=== PATIENT | female | born 1985 | race Caucasian/White ===

== ENCOUNTER 2017-10-07 11:55 | Emergency (ER) | payer OTHER ==
[2017-10-07 12:10] VITALS: BP 150/100
--- NOTE | 2017-10-07 12:29 | UC ---
Eye Complaint HPI - HPI Summary HPI Summary: 32 y/o female presents to the urgent care c/o RT eye redness w/ swelling around eye since last night around 0200AM. Pt was outside last night and then she went to sleep. She felt discomfort in her RT eye and when she look in the mirror her Rt was swollen. She thinks maybe she had an insect bite. This morning she woke up w/ mild yellowish crusting drainage. Pt denies eye pain, photophobia, GARCÍA, dizziness, SOB, throat tightening, rash, abdominal pain, N/V/ D. Pt states every time she goes to the doctor her BP is high. - History of Current Complaint Chief Complaint: UCEye Stated Complaint: RIGHT EYE COMPLAINT Time Seen by Provider: 10/07/17 12:10 Hx Obtained From: Patient Hx Last Menstrual Period: present Onset/Duration: Gradual Onset, Lasting Days - 1 day, Still Present, Worse Since - this morning Timing: Constant Severity Initially: Mild Severity Currently: Moderate Pain Intensity: 0 Pain Scale Used: 0-10 Numeric Location of Injury: Conjunctiva - RT conjunctiva redness, Periorbital - RT eye swelling Character: Dull Aggravating Factor(s): Blinking Alleviating Factor(s): Nothing Associated Signs And Symptoms: Positive: Drainage (Purulent) - mild this morning when she woke up, Swelling - RT eye. Negative: Photophobia, Vision Impairment Bilateral - Risk Factors Penetrating Injury Risk Factor: Negative Globe Rupture Risk Factors: Negative Acute Glaucoma Risk Factors: Negative - Allergies/Home Medications Allergies/Adverse Reactions: Allergies Allergy/AdvReac Type Severity Reaction Status Date / Time Penicillins Allergy Intermediate Rash Verified 10/07/17 12:10 PMH/Surg Hx/FS Hx/Imm Hx Previously Healthy: Yes - Pt denies PMHX - Surgical History Surgical History: None - Family History Known Family History: Positive: None - PT denies FMHX - Social History Occupation: Employed Full-time Lives: With Family Alcohol Use: Occasionally Substance Use Type: None Smoking Status (MU): Former Smoker Review of Systems Constitutional: Negative Skin: Negative Eyes: Drainage - mild rustingthis morning, Eye Redness - RT eye, Other - RT eye swelling ENT: Negative Respiratory: Negative Cardiovascular: Negative Gastrointestinal: Negative Genitourinary: Negative Motor: Negative Neurovascular: Negative Musculoskeletal: Negative Neurological: Negative Psychological: Negative Is Patient Immunocompromised?: No All Other Systems Reviewed And Are Negative: Yes Physical Exam - Summary Physical Exam Summary: Vital Signs Reviewed: Yes General: Well appearing, well nourished obese female in no apparent pain distress Eyes: Positive: RT Conjunctiva Inflamed - Visual acuity: WNL,Visual clemens: full to confrontation.mild periorbital soft tissue swelling at the RT upper eyelid with erythema,, tender to palpation. PERRLA, EOMI intact w/out limitation or complaint of pain. eyelashes clear. mild tearing and yellowish drainage observed. No ciliary flush. No chemosis, No photophobia. Normal fundoscopic exam; no proptosis, exophthalmos, nystagmus. ENT: Positive: Normal ENT inspection, Hearing grossly normal, Pharynx normal, Nasal congestion, Nasal drainage - clear, TMs normal - B/L external ear canal clear , TM's WNL. Negative: Tonsillar swelling, Tonsillar exudate Neck: Positive: Supple, Nontender, No Lymphadenopathy Respiratory: Positive: Chest nontender, Lungs clear, Normal breath sounds, No respiratory distress Cardiovascular: Positive: RRR, No Murmur, Pulses Normal, Brisk Capillary Refill Abdomen Description: Positive: Nontender, No Organomegaly, Soft. Negative: CVA Tenderness (R), CVA Tenderness (L) Bowel Sounds: Positive: Present Musculoskeletal: Positive: Strength Intact, ROM Intact, No Edema Neurological Exam: Normal Psychological Exam: Normal Skin Exam: Normal Triage Information Reviewed: Yes Vital Signs: Initial Vital Signs Temp 99.1 F 10/07/17 12:03 Pulse 100 10/07/17 12:03 Resp 18 10/07/17 12:03 BP 150/100 10/07/17 12:03 Pulse Ox 98 10/07/17 12:03 Eye Complaint Course/Dx - Course Course Of Treatment: 32 y/o female presents to the urgent care c/o RT eye redness w/ swelling around eye since last night around 0200AM. Pt was outside last night and then she went to sleep. She felt discomfort in her RT eye and when she look in the mirror her Rt was swollen. She thinks maybe she had an insect bite. This morning she woke up w/ mild yellowish crusting drainage. Pt denies eye pain, photophobia, GARCÍA, dizziness, SOB, throat tightening, rash, abdominal pain, N/V/D. Pt states every time she goes to the doctor her BP is high.Hx obtained. Pt probably w/ periorbital cellulitis s/p insect bite and B/ L cerumen impaction. Pt declined ear irrigation. Pt PCN allergic. Pt Rx Clindamycin PO and erythromycin ophthalmic oint to alleviate symptoms. Advised to apply cold compresses for swelling. Also Rx Debrox otic drops to alleviate cerumen impaction. Pt advised to f/u w; [facility] DR Yang if not improvement of symptoms in 2 days for further management. Pt's BP is elevated today advised to decrease salt in diet, monitor BP and f/u with PCP for further management. Pt understood and agreed w/ plan of care. - Differential Dx/Diagnosis Provider Diagnoses: 1- Rt eye periorbital cellulitis. 2-B/L cerumen impaction. 3-Elevated BP w/o Hx of HTN Discharge - Sign-Out/Discharge Documenting (check all that apply): Patient Departure - D/C home - Discharge Plan Condition: Stable Disposition: HOME Prescriptions: Carbamide Peroxide 6.5% OTIC* [DEBROX 6.5% Otic*] 5 drop BOTH EARS BID #1 bottle Clindamycin Cap(NF) [Clindamycin Cap 300 mg Cap(NF)] 300 mg PO TID #21 cap Erythromycin TOPICAL GEL* [Erythromycin OPTH OINT*] 1 applic TOPICAL TID #1 oint Patient Education Materials: Cerumen Impaction (ED), Low-Sodium Diet (ED), Periorbital Cellulitis in Adults (ED) Referrals: [facility] [place] [facility] [Outside] - 3 Days Renetta Yang MD [Medical Doctor] - 2 Days Additional Instructions: 1-Please apply ophthalmic oint as instructed and finish the full course of Clyndamycin PO to avoid recurrent infection. Encourage hand washing. apply cold compresses to decrease swelling. Antibiotics can upset your Digestive system please take probiotics or culturelle to protect your GI system. 2-If you do not improve or if symptoms worsen please f/u with jewel s[facility] DR Yang in 2-3 days for further evaluation and treatment 3-Your BP is elevated today. please decrease salt in your diet, monitor BP and if it continues to be elevated please f/u with your PCP for further management - Billing Disposition and Condition Condition: STABLE Disposition: Home
== END 2017-10-07 12:45 | disposition home or self-care (01) ==
LOC: UCCORT 11:55
DX: H05.011 Cellulitis of right orbit (principal); H61.23 Impacted cerumen, bilateral; R03.0 Elevated blood-pressure reading, without diagnosis of hypertension; Z88.0 Allergy status to penicillin; Z87.891 Personal history of nicotine dependence
CPT/HCPCS: 99202; G0463

== ENCOUNTER 2018-09-17 19:59 | Emergency (ER) | payer BC, OTHER ==
[2018-09-17 20:07] VITALS: BP 119/73
[2018-09-17] MEDS ORDERED: Lidocaine 1%** 5 ML VIAL INJ ONE (20:09)
[2018-09-17] MEDS ORDERED: Tetan/Diph/Pertus SYR(Tdap)* 0.5 ML SYR(BOOSTRIX) use SYR IM ONE (20:11)
--- NOTE | 2018-09-17 20:27 | UC ---
Laceration HPI - HPI Summary HPI Summary: Pt presents with c/o laceration to right hand while washing dishes at home. laceration at base of right thumb. - History Of Current Complaint Chief Complaint: UCLaceration Stated Complaint: RIGHT HAND LAC Time Seen by Provider: 09/17/18 20:05 Hx Obtained From: Patient Hx Last Menstrual Period: now Laceration Location: Hand Mechanism Of Injury: Sharp Trauma Onset/Duration: Sudden Onset Severity: Moderate Pain Intensity: 6 Aggravating Factors: Position, Movement Related History: Dominant Hand Right - Allergies/Home Medications Allergies/Adverse Reactions: Allergies Allergy/AdvReac Type Severity Reaction Status Date / Time Penicillins Allergy Intermediate Rash Verified 09/17/18 20:02 Home Medications: Home Medications NK [No Home Medications Reported] 09/17/18 [History Confirmed 09/17/18] PMH/Surg Hx/FS Hx/Imm Hx Previously Healthy: Yes - Surgical History Surgical History: Yes Surgery Procedure, Year, and Place: wisdom teeth - Family History Known Family History: Positive: Cardiac Disease - Social History Occupation: Employed Full-time Lives: With Family Alcohol Use: Occasionally Substance Use Type: None Smoking Status (MU): Former Smoker Have You Smoked in the Last Year: No - Immunization History Most Recent Tetanus Shot: Unknown Review of Systems All Other Systems Reviewed And Are Negative: Yes Constitutional: Positive: Negative Skin: Positive: Other - laceration right hand Eyes: Positive: Negative ENT: Positive: Negative Respiratory: Positive: Negative Cardiovascular: Positive: Negative Gastrointestinal: Positive: Negative Motor: Positive: Negative Neurovascular: Positive: Negative Musculoskeletal: Positive: Myalgia - at laceration site Neurological: Positive: Negative Psychological: Positive: Negative Is Patient Immunocompromised?: No Physical Exam Triage Information Reviewed: Yes Appearance: Pain Distress, Other: - pale, Vital Signs: Initial Vital Signs Temp 96.7 F 09/17/18 20:03 Pulse 63 09/17/18 20:03 Resp 16 09/17/18 20:03 BP 119/73 09/17/18 20:03 Pulse Ox 98 09/17/18 20:03 Vital Signs Reviewed: Yes Eye Exam: Normal ENT: Positive: Hearing grossly normal Respiratory: Positive: No respiratory distress Musculoskeletal: Positive: Strength Intact, ROM Intact Neurological Exam: Normal Psychological Exam: Normal Skin Exam: Other - laceration right hand base of right thumb Laceration Repair - Laceration Repair 1 Description: Irregular Laceration Size After Repair: Length (cm) - 5, Width (mm) - 5, Depth (mm) - 4 Modified For Repair: No Type Injection: Local Anesthesia Used: 1.0% Lido Cleansing Completed Via Routine Prep: Yes Irrigation With Pressure Irrigation Device: Yes Closure Material: Sutures - 14 sutures of 4-0 prolene placed Closure Method: Single Layer Suture Of: Skin Suture Type: Prolene Diagnostics - Radiology No standard instances Radiology Interpretation Completed By: ED Physician - negative for foreign body Laceration Course/Dx - Course/Dx Course Of Treatment: Pt needed tetanus booster. - Differential Dx - Laceration/Wound Differental Diagnoses: Foreign Body, Laceration - Diagnosis Provider Diagnosis: Laceration of right hand Discharge - Sign-Out/Discharge Documenting (check all that apply): Patient Departure All imaging exams completed and their final reports reviewed: No - Discharge Plan Condition: Stable Disposition: HOME Patient Education Materials: Laceration (ED), Finger Laceration (ED) Forms: *Work Release Referrals: No Primary Care Phys,NOPCP [Primary Care Provider] - [facility] [place] [facility] [Outside] Additional Instructions: Please change dressing daily or more frequently if bandage gets soiled or wet. Please do not get wound wet or soiled for 24-48 hours. Please use splint for 5- 6 days. Please return to clinic for suture removal in 8-10 days. Please monitor for any signs or symptoms of infection that include but are not limited to increased redness, purulent drainage, tenderness, swelling fever and/or chills. - Billing Disposition and Condition Condition: STABLE Disposition: Home
[2018-09-17] MEDS ORDERED: Lidocaine 1% MPF* 2 ML VIAL INJ ONE (21:08)
--- NOTE | 2018-09-18 13:41 | UC ---
- Progress Note Progress Note: Radiologist reading of right hand x-ray from September 17, 2018 is no foreign body. Provider interpretation of the same date also states no foreign body therefore there is no discrepancy. Course/Dx - Diagnoses Provider Diagnoses: Laceration of right hand Discharge - Sign-Out/Discharge Documenting (check all that apply): Patient Departure All imaging exams completed and their final reports reviewed: Yes - Discharge Plan Condition: Stable Disposition: HOME Patient Education Materials: Laceration (ED), Finger Laceration (ED) Forms: *Work Release Referrals: [facility] [place] [facility] [Outside] No Primary Care Phys,NOPCP [Primary Care Provider] - Additional Instructions: Please change dressing daily or more frequently if bandage gets soiled or wet. Please do not get wound wet or soiled for 24-48 hours. Please use splint for 5- 6 days. Please return to clinic for suture removal in 8-10 days. Please monitor for any signs or symptoms of infection that include but are not limited to increased redness, purulent drainage, tenderness, swelling fever and/or chills. - Billing Disposition and Condition Condition: STABLE Disposition: Home
== END 2018-09-17 21:49 | disposition home or self-care (01) ==
LOC: UCCORT 19:59
DX: W26.8XXA Contact with other sharp object(s), not elsewhere classified, initial encounter (principal); Y93.G1 Activity, food preparation and clean up; Y92.000 Kitchen of unspecified non-institutional (private) residence as the place of occurrence of the external cause; Z88.0 Allergy status to penicillin; Z87.891 Personal history of nicotine dependence
CPT/HCPCS: 12002; 90471; 90715; 99211; G0463

== ENCOUNTER 2018-09-25 17:48 | Emergency (ER) | payer BC ==
--- NOTE | 2018-09-25 18:20 | UC ---
General HPI - HPI Summary HPI Summary: R hand sutured on 09/17/18. Pt here for suture removal. she notes mild swelling and stiffness but no erythema, drainage or limited ROM. - History of Current Complaint Stated Complaint: SUTURE REMOVAL Time Seen by Provider: 09/25/18 18:14 Hx Obtained From: Patient Hx Last Menstrual Period: now Associated Signs & Symptoms: Negative: Fever - Allergy/Home Medications Allergies/Adverse Reactions: Allergies Allergy/AdvReac Type Severity Reaction Status Date / Time Penicillins Allergy Intermediate Rash Verified 09/25/18 18:14 PMH/Surg Hx/FS Hx/Imm Hx Previously Healthy: Yes - Surgical History Surgical History: Yes Surgery Procedure, Year, and Place: wisdom teeth - Family History Known Family History: Positive: Cardiac Disease - Social History Alcohol Use: Occasionally Substance Use Type: None Smoking Status (MU): Former Smoker Have You Smoked in the Last Year: No - Immunization History Most Recent Tetanus Shot: Unknown Review of Systems All Other Systems Reviewed And Are Negative: No Constitutional: Negative: Fever Skin: Negative: Rash Musculoskeletal: Negative: Decreased ROM Physical Exam Triage Information Reviewed: Yes Appearance: Well-Appearing Vital Signs Reviewed: Yes Skin Exam: Normal, Other - R dorsal hand with stitches at base of index finger. slight swelling but no erythema, warmth or drainage. hand has full s/v/m function. Course/Dx - Course Course Of Treatment: Procedure: part of the sutures were removed; however, 5 were left because a few areas of the wound edge started to separate. the wound was cleansed with warm water and dilute peroxide to remove some old dry blood. hand was then dried. Mastisol was placed where wound edge separation occurred and 3 steri strips were applied. volar finger splint applied to index finger and held with this strips of coban. wound was left visible. pt will wear the splint as needed for comfort of wound. Repeat BP prior to discharge was much improved. - Diagnoses Provider Diagnosis: Visit for suture removal, Skin wound closed with sterile strip Discharge - Sign-Out/Discharge Documenting (check all that apply): Patient Departure All imaging exams completed and their final reports reviewed: No Studies - Discharge Plan Condition: Stable Disposition: HOME Patient Education Materials: Steristrips (ED), Stitches Removal (ED) Referrals: KIMBERLY Whitlock [Medical Doctor] - If Needed Additional Instructions: RETURN IN 5 DAYS FOR WOUND CHECK/SUTURE REMOVAL. RETURN SOONER FOR ANY CONCERNS. - Billing Disposition and Condition Condition: STABLE Disposition: Home
[2018-09-25 18:54] VITALS: BP 126/83
== END 2018-09-25 18:53 | disposition home or self-care (01) ==
LOC: UCCORT 17:48
DX: S61.411D Laceration without foreign body of right hand, subsequent encounter (principal); X58.XXXD Exposure to other specified factors, subsequent encounter; Y92.9 Unspecified place or not applicable; Z87.891 Personal history of nicotine dependence
CPT/HCPCS: 99211; G0463

== ENCOUNTER 2019-04-07 10:14 | Emergency (ER) | payer SELFPAY ==
--- NOTE | 2019-04-07 12:09 | UC ---
Ear Complaint HPI - HPI Summary HPI Summary: 34 y/o female presents to the urgent care c/o cold symptoms w/ nasal congestion, moderate PND and sinus pressure and pain for the past week. symptoms were improving w/ Sudafed PO, but on Sunday Pt experienced left ear pain. This morning pain is worse 6/10 associated w/ ear pressure and pain. She has not taken anything for pain. Mild sore throat, GARCÍA and moderate PND. Pt states she usually gets very anxious when she comes to the Dr and her BP if elevated at first. Pt denies fever, dizziness, SOB, chest pain, visual changes , abdominal pain, N/V/d. - History of Current Complaint Stated Complaint: LEFT EAR COMPLAINT Time Seen by Provider: 04/07/19 12:08 Hx Obtained From: Patient Hx Last Menstrual Period: now ?: No Onset/Duration: Gradual Onset Severity Initially: Mild Severity Currently: Moderate Pain Intensity: 6 - left ear Pain Scale Used: 0-10 Numeric Aggravating Factors: Other - URI symptoms Alleviating Factors: OTC Meds - Sudafed PO Associated Signs/Symptoms: Positive: Hearing Loss, URI Symptoms - Allergies/Home Medications Allergies/Adverse Reactions: Allergies Allergy/AdvReac Type Severity Reaction Status Date / Time Penicillins Allergy Intermediate Rash Verified 04/07/19 12:21 PMH/Surg Hx/FS Hx/Imm Hx Previously Healthy: Yes - Pt denies PMHX - Surgical History Surgical History: Yes Surgery Procedure, Year, and Place: wisdom teeth - Family History Known Family History: Positive: Cardiac Disease - Social History Occupation: Employed Full-time Lives: With Family Alcohol Use: Occasionally Substance Use Type: None Smoking Status (MU): Former Smoker Have You Smoked in the Last Year: No - Immunization History Most Recent Tetanus Shot: Unknown Review of Systems All Other Systems Reviewed And Are Negative: Yes Constitutional: Positive: Negative Skin: Positive: Negative Eyes: Positive: Negative ENT: Positive: Sore Throat - mild, Ear Ache - left ear pain w/ decrease hearing and pressure, Nasal Discharge - yellowish, Sinus Congestion, Sinus Pain/ Tenderness, Other - moderate yellowish PND Respiratory: Positive: Negative Cardiovascular: Positive: Negative Gastrointestinal: Positive: Negative Genitourinary: Positive: Negative Motor: Positive: Negative Neurovascular: Positive: Negative Musculoskeletal: Positive: Negative Neurological: Positive: Headache Psychological: Positive: Negative Is Patient Immunocompromised?: No Physical Exam - Summary Physical Exam Summary: Vital signs: reviewed General: well developed, well nourished obese female sitting in the examining table w/o any apparent distress Skin: [place], warm and dry, no evidence of atopic dermatitis, psoriasis, seborrhea. HEENT: -Head: atraumatic, non tender; no scalp dermatitis. -Eyes: sclera and conjunctiva clear, PERRLA, EOMI -Ears: no pre- or postauricular lymphadenopathy or erythema; B/L external ear canals impacted w/ cerumen unable to visualize TM's -Nose/Face: erythematous and edematous nasal mucosa with clear rhinorrhea, no frontal or maxillary sinus tender to palpation. -Mouth/Throat: Mucous membrane moist, posterior pharynx clear, no erythema or exudates. Neck: supple, FROM, nontender, no lymphadenopathy, no meningismus. Chest: Clear to auscultation, normal breath sounds Abd: soft, Bowel sounds active, Nontender. Back: no spinal or CVAT Neuro: A&O x4, GCS 15, no focal neuro deficits, normal behavior for age. Triage Information Reviewed: Yes Ear Complaint Course/Dx - Course Course Of Treatment: 34 y/o female presents to the urgent care c/o cold symptoms w/ nasal congestion, moderate PND and sinus pressure and pain for the past week. symptoms were improving w/ Sudafed PO, but on Sunday Pt experienced left ear pain. This morning pain is worse 6/10 associated w/ ear pressure and pain. She has not taken anything for pain. Mild sore throat, GARCÍA and moderate PND. Pt states she usually gets very anxious when she comes to the Dr and her BP if elevated at first. Pt denies fever, dizziness, SOB, chest pain, visual changes , abdominal pain, N/V/d. Hx obtained. Pt w/ URI and B/L ear impaction unable to visualize TM's on examination. Pt givne Ibuprofen PO by the nurse for otalgia/ B /L ear irrigation ordered. b/L ear Irrigation performed by Nurse. Pt tolerated well procedure w/o any adverse effect. Left external w/ erythema and yellowish purulent discharge, LF TM injected w/ erythema, no light reflex, no perforation. Pt will be Tx for Otitis externa and Media. Pt PCN allergic. Pt given Ibuprofen at the clinic for otalgia. Pt Rx Doxycycline PO and Cortisporin otic drops. Advised to continue w/ Ibuprofen PO for alleviate otalgia. Pt's BP is elevated today advised to decrease salt in diet, monitor BP and f/u with PCP for further management. Pt probably with white coat HTN. However advised if she develops visual changes, severe GARCÍA chest pain ect to go immediately to the ER for further management.Pt advised if not improvement of symptoms in 2-3 days to return to the clinic or f/u w/ her PCP for further treatment. Pt understood and agreed w/ plan of care. - Differential Dx/Diagnosis Differential Diagnosis/HQI/PQRI: Cerumen Impaction, Otitis Externa, Otitis Media , Perforated TM Provider Diagnosis: Bilateral impacted cerumen, External otitis of left ear, Left otitis media, Elevated BP without diagnosis of hypertension Discharge ED - Sign-Out/Discharge Documenting (check all that apply): Patient Departure - D/C home All imaging exams completed and their final reports reviewed: No Studies - Discharge Plan Condition: Stable Disposition: HOME Prescriptions: DOXYcycline CAP(*) [DOXYcycline 100MG CAP(*)] 100 mg PO BID #20 cap Neomyc/Polym/HC 1% OTIC SUSP* [Cortisporin Otic Susp 1%*] 4 drop LEFT EAR TID # 1 btl Patient Education Materials: Ear Infection (ED), Low-Sodium Diet (ED) Referrals: [facility] [place] [facility] [Outside] - 3 Days Additional Instructions: 1- Please take the full course of the antibiotic to avoid resistance.Take yogurts w/ probiotics or Culturelle to protect your GI system 2-Please take ibuprofen PO q6-8hrs prn as instructed after meals to alleviate pain and swelling. Increase fluid intake, eat well, rest and avoid strenuous exercise 3-If symptoms do not improve or worsen please f/u with your PCP in 3 days or return to the urgent care for further evaluation and treatment. 4-Your BP is elevated today. Please take your BP medications and decrease salt in your diet, monitor BP and if it continues to be elevated please f/u with your PCP for further management. If you develop chest pain, dizziness, visual disturbances, SOB, or severe GARCÍA please go immediately to the ER for further management - Billing Disposition and Condition Condition: STABLE Disposition: Home - Attestation Statements Provider Attestation: This patient was not seen by me. I was available for consult. Chart reviewed. DIANNE
[2019-04-07 12:21] VITALS: BP 148/101
[2019-04-07] MEDS ORDERED: Ibuprofen TAB* 400 MG PO ONE (12:27)
== END 2019-04-07 13:10 | disposition home or self-care (01) ==
LOC: UCCORT 10:14
DX: H66.92 Otitis media, unspecified, left ear (principal); R03.0 Elevated blood-pressure reading, without diagnosis of hypertension; H61.23 Impacted cerumen, bilateral; J02.9 Acute pharyngitis, unspecified; R51 Headache; Z87.891 Personal history of nicotine dependence; Z88.0 Allergy status to penicillin
CPT/HCPCS: 99213; A9270-GY; G0463